=== PATIENT | male | born 1985 | race African-American/Black ===

== ENCOUNTER 2019-04-25 00:16 | Emergency (ER) | payer BC | END 2019-04-25 00:53 | disposition left against medical advice (07) | LOC: ER 00:16 | DX: Z53.21 Procedure and treatment not carried out due to patient leaving prior to being seen by health care provider (principal) ==

== ENCOUNTER 2019-04-25 01:37 | Emergency (ER) | payer BC ==
[2019-04-25 01:41] VITALS: BP 144/85
== END 2019-04-25 02:20 | disposition left against medical advice (07) ==
LOC: ER 01:37
DX: Z53.21 Procedure and treatment not carried out due to patient leaving prior to being seen by health care provider (principal)